=== PATIENT | male | born 1980 | race Caucasian/White ===

== ENCOUNTER 2018-04-07 14:14 | Inpatient (IN) | payer SELFPAY ==
[~2018-04-07] VITALS: Ht 175.3 cm; Wt 97.5 kg
[2018-04-07] MEDS ORDERED: KETOROLAC 30MG/ML VIAL IV STA (14:46)
[2018-04-07] MEDS ORDERED: ONDANSETRON HCL 4MG/2ML VIAL IV STA (14:46)
[2018-04-07] MEDS ORDERED: SODIUM CHLORIDE 0.9% 1,000 ML IV ONE ×2 (14:46→17:57)
[2018-04-07 15:14] LABS: CHLORIDE 96 mEq/L (98-107)
[2018-04-07 15:19] LABS: ETHANOL BLOOD < 10 mg/dL
[2018-04-07] MEDS ORDERED: MORPHINE SULFATE 4 MG/ML CPJ (NOT FOR IM USE) IV STA (15:19)
[2018-04-07 15:20] LABS: BASOPHILS % 0.3 % (0.0-2.0); HEMATOCRIT. 45.3 % (42.0-52.0); HEMOGLOBIN. 15.5 g/dL (14.0-18.0); LYMPHOCYTES % 14.2 % (20.0-50.0); MEAN CORPUSCULAR HEMOGLOBIN 28.8 pg (28.0-32.0); MEAN PLATELET VOLUME 8.4 fl (7.4-10.4); MONOCYTES % 6.6 % (2.0-8.0); NEUTROPHILS % 78.9 % (40.0-76.0); PLATELET 253 x1000/uL (130-400); RED CELL DISTRIBUTION WIDTH 13.8 % (11.6-14.6)
[2018-04-07 15:45] LABS: PARTIAL THROMBOPLASTIN TIME 28.8 sec (23.4-31.0); PROTHROMBIN TIME 10.4 sec (9.4-11.6)
[2018-04-07] MEDS ORDERED: IOHEXOL-300 100 ML BOTTLE ONE (16:09)
[2018-04-07] MEDS ORDERED: PIPERACILLIN/TAZ 3.375G PREMIX 50 ML IV ONE (16:30)
[2018-04-07 16:31] LABS: CLARITY URINE CLEAR (CLEAR); COLOR URINE ORANGE (YELLOW); KETONES URINE 1+ (NEGATIVE); LEUKOCYTE ESTERASE URINE TRACE (NEGATIVE); NITRITE URINE POSITIVE (NEGATIVE); OCCULT BLOOD URINE 1+ (NEGATIVE); PROTEIN URINE 2+ (NEGATIVE); SPECIFIC GRAVITY URINE 1.027 (1.005-1.030)
[2018-04-07] MEDS ORDERED: BUPIVACAINE HCL 0.5% (5MG/ML) 50ML ONE (17:27)
[2018-04-07] MEDS ORDERED: SKIN ADHESIVE 0.7 GM EA TOP ONE (17:27)
[2018-04-07] MEDS ORDERED: ONDANSETRON HCL 4MG/2ML VIAL IV PRN ×2 (18:00→19:30)
[2018-04-07] MEDS ORDERED: MEPERIDINE HCL/PF 25MG/ML CPJ IV PRN (18:00)
[2018-04-07] MEDS ORDERED: HYDROMORPHONE HCL/PF 2MG/ML CPJ IV PRN (18:00)
[2018-04-07] MEDS ORDERED: FENTANYL CITRATE/PF 50MCG/ML 2ML VIAL ONE (18:07)
[2018-04-07] MEDS ORDERED: PHENYLEPHRINE HCL 10 MG/ML 1ML (IV VIAL) IV ONE (18:08)
[2018-04-07] MEDS ORDERED: MIDAZOLAM HCL 2 MG/2 ML VIAL ONE (18:08)
[2018-04-07] MEDS ORDERED: ROCURONIUM BROMIDE 10MG/ML VIAL 5ML IV ONE (18:08)
[2018-04-07] MEDS ORDERED: PROPOFOL 200MG/20ML VIAL IV ONE (18:08)
[2018-04-07] MEDS ORDERED: SUCCINYLCHOLINE CHLORIDE 200MG/10ML VIAL IV ONE (18:08)
[2018-04-07] MEDS ORDERED: EPHEDRINE SULFATE 50MG/ML VIAL ONE (18:08)
[2018-04-07] MEDS ORDERED: NEOSTIGMINE METHYLSULFATE 1MG/ML 10 ML VIAL ONE (18:08)
[2018-04-07] MEDS ORDERED: LIDOCAINE HCL/PF 1% 10 MG/ML 5ML VIAL ONE (18:08)
[2018-04-07] MEDS ORDERED: GLYCOPYRROLATE 0.2 MG/ML 2ML VIAL ONE (18:08)
[2018-04-07] MEDS ORDERED: SODIUM CHLORIDE 0.9% 10ML VIAL ONE (18:08)
[2018-04-07] MEDS ORDERED: CEFAZOLIN SODIUM 1000MG/VIAL ONE (18:08)
[2018-04-07] MEDS ORDERED: METOCLOPRAMIDE HCL 10MG/2ML VIAL ONE (18:09)
[2018-04-07] MEDS ORDERED: ALBUTEROL 90MCG/PUFF 17GM INHALER INH ONE (18:28)
[2018-04-07] MEDS ORDERED: DEXAMETHASONE 4MG/ML 1ML VIAL ONE (19:29)
[2018-04-07] MEDS ORDERED: HYDROCODONE/ACETAMINOPHEN 5/325MG TABLET PO PRN ×2 (19:30)
[2018-04-07 20:00] VITALS: BP 111/70
[2018-04-07 21:00] VITALS: BP 111/70
[2018-04-07] MEDS: MORPHINE SULFATE 4 MG/ML CPJ (NOT FOR IM USE) IV PRN (21:41)
[2018-04-07] MEDS ORDERED: ONDANSETRON 4MG ODT PO PRN (21:45)
[2018-04-07] MEDS ORDERED: DEXT 5%/0.45% NACL KCL 20MEQ/L 1,000 ML IV SCH (23:00)
[2018-04-07] MEDS: SODIUM CHLORIDE 0.9% INJ 3ML FLUSH IVF SCH (23:15)
[2018-04-08] VITALS: BP 116/64
[2018-04-08] MEDS: PIPERACILLIN/TAZ 3.375G PREMIX 50 ML IV SCH ×3 (01:15→17:28)
[2018-04-08] MEDS: MORPHINE SULFATE 4 MG/ML CPJ (NOT FOR IM USE) IV PRN ×3 (01:30→12:50)
[2018-04-08 04:00] VITALS: BP 116/72
[2018-04-08] MEDS: SODIUM CHLORIDE 0.9% INJ 3ML FLUSH IVF SCH ×2 (06:20→14:00)
[2018-04-08 08:00] VITALS: BP 110/71
[2018-04-08 12:00] VITALS: BP 107/69
[2018-04-08 16:00] VITALS: BP 107/68
[2018-04-08 16:15] VITALS: BP 107/68
== END 2018-04-08 20:30 | disposition home or self-care (01) | DRG 225 ==
LOC: ER 15:20 → 6EST 15:30 → OBSVTOIN 15:30 → EDBEDREQ 17:21 → ER 17:22 → ENRESERV 19:18 → CANBEDREQ 21:02
PROVIDERS: ADMIT Family Medicine; ATTEND Family Medicine
PROC: 0DTJ4ZZ Resection of Appendix, Percutaneous Endoscopic Approach (ICD-10-PCS; principal; 2018-04-07 17:30)
DX: K35.3 Acute appendicitis with localized peritonitis (principal); N28.1 Cyst of kidney, acquired; E86.0 Dehydration; D72.829 Elevated white blood cell count, unspecified
CPT/HCPCS: 36415; 71045; 74177; 80053; 81003; 83690; 85025; 85610; 85730; 86850; 86900; 88304; 93005; 96365; 96375; 99285; A4216; G0378; G0482; J0330; J0690; J1100; J1885; J2250; J2270; J2370; J2405; J2543; J2704; J2710; J2765; J3010; J3490; J7030; Q9967